=== PATIENT | female | born 1995 | race Caucasian/White ===

== ENCOUNTER → 2021-01-15 | Outpatient (CLI) | payer BC | LOC: LAB 09:06 | DX: N92.6 Irregular menstruation, unspecified (principal) | CPT/HCPCS: 36415; 84702 ==

== ENCOUNTER → 2021-01-19 | Outpatient (CLI) | payer BC | LOC: LAB 09:02 | DX: N92.6 Irregular menstruation, unspecified (principal) | CPT/HCPCS: 36415; 84702 ==

== ENCOUNTER → 2021-01-26 | Outpatient (CLI) | payer BC | LOC: LAB 07:57 | DX: N92.6 Irregular menstruation, unspecified (principal) | CPT/HCPCS: 36415; 84702 ==